=== PATIENT | female | born 2000 | race Two or more races ===

== ENCOUNTER 2022-06-01 20:00 | Emergency (ER) | payer SELFPAY ==
[~2022-06-01] VITALS: Ht 165.1 cm; Wt 75.0 kg
[2022-06-01 20:01] VITALS: BP 125/77
== END 2022-06-01 22:04 | disposition left against medical advice (07) ==
LOC: M ED 20:00
DX: Z53.21 Procedure and treatment not carried out due to patient leaving prior to being seen by health care provider (principal)

== ENCOUNTER 2023-09-16 00:23 | Inpatient (IN) | payer OTHER, SELFPAY ==
[~2023-09-16] VITALS: Ht 165.1 cm; Wt 98.9 kg
[2023-09-16] VITALS (57 sets, daily range): BP systolic 83–148; BP diastolic 47–95
[2023-09-16] MEDS ORDERED: HOME MED LIST COMPLETE! XX SCH (00:40)
[2023-09-16] MEDS ORDERED: LACTATED RINGER'S 1000 ML IV STA (02:49)
[2023-09-16] MEDS ORDERED: OXYTOCIN DRIP 30 UNITS in IV 1 EA IV SCH ×2 (02:50→20:40)
[2023-09-16] MEDS ORDERED: OXYTOCIN INJ 10UNITS/ML 1ML VIAL IM PRN (02:50)
[2023-09-16] MEDS ORDERED: OXYTOCIN DRIP 30 UNITS in IV 1 EA IV PRN ×6 (02:50)
[2023-09-16] MEDS ORDERED: METHYLERGONOVINE MALEATE 0.2MG/ML 1ML VIAL IM PRN (02:50)
[2023-09-16] MEDS ORDERED: CARBOPROST TROMETHAMINE 250 MCG/ML AMP IM PRN (02:50)
[2023-09-16] MEDS ORDERED: OXYTOCIN INJ 10UNITS/ML 1ML VIAL IV PRN (02:50)
[2023-09-16] MEDS ORDERED: LR 1,000 ML IV SCH ×2 (02:50→20:40)
[2023-09-16] MEDS ORDERED: TRANEXAMIC ACID INJection 1,000 MG in NS 100 ML IV PRN (02:50)
[2023-09-16] MEDS ORDERED: LIDOCAINE 1% MDV 20ML VIAL INFIL PRN (02:50)
[2023-09-16] MEDS ORDERED: miSOPROStol 50MCG 1/2 TABLET PO ONE (02:50)
[2023-09-16 03:49] LABS: HEMATOCRIT 38.9 % (36.0-47.0); HEMOGLOBIN 13.5 g/dl (12.0-15.5); MEAN CORPUSCULAR HGB CONC 34.7 g/dl (32.0-36.5); MEAN CORPUSCULAR VOLUME 89.4 fl (80.0-96.0); PLATELET COUNT, AUTOMATED 198 10^3/uL (150-450); RED BLOOD COUNT 4.35 10^6/uL (4.00-5.40); WHITE BLOOD COUNT 18.2 10^3/uL (4.0-10.0)
[2023-09-16 04:04] LABS: CREATININE,RANDOM URINE 21.2 MG/DL
[2023-09-16 04:08] LABS: TOTAL PROTEIN,RANDOM URINE < 6.0 MG/DL (0.0-14.0)
[2023-09-16 04:13] LABS: URIC ACID 2.7 MG/DL (3.1-7.8)
[2023-09-16 04:15] LABS: LDH LACTATE DEHYDROGENASE 164 U/L (120-246)
[2023-09-16 04:16] LABS: ALT/SGPT 15 U/L (7.0-40); AST/SGOT 17 U/L (<34); BILIRUBIN,TOTAL 0.6 MG/DL (0.3-1.2); GLOMERULAR FILTRATION RATE > 60.0 (>60)
[2023-09-16] MEDS: LR 1,000 ML IV SCH ×4 (04:45→18:18)
[2023-09-16] MEDS ORDERED: NALBUPHINE HCL 1MG/0.1ML (100MG/10ML) MDV IV PRN (09:05)
[2023-09-16] MEDS ORDERED: PROMETHAZINE 25MG/ML 1ML VIAL IV ONE (09:05)
[2023-09-16] MEDS ORDERED: diphenhydrAMINE 50MG/ML VIAL IV PRN (10:05)
[2023-09-16] MEDS ORDERED: LR 500 ML IV PRN (10:05)
[2023-09-16] MEDS ORDERED: EPIDURAL/PCA KEYS XX PRN (10:05)
[2023-09-16] MEDS ORDERED: NALOXONE INJ 0.4MG/1ML VIAL IV PRN (10:05)
[2023-09-16] MEDS ORDERED: ePHEDrine SULFATE 25 MG/5 ML(5MG/ML) SYRINGE IVP PRN (10:05)
[2023-09-16] MEDS: FENTANYL/ROPIVACAINE/NACL BAG 100 ML EPIDURAL SCH ×2 (10:39→18:46)
[2023-09-16] MEDS: ONDANSETRON 4MG 2ML VIAL IV PRN (14:22)
[2023-09-16] MEDS ORDERED: ACETAMINOPHEN 500 MG TAB PO ONE (18:55)
[2023-09-17] VITALS (26 sets, daily range): BP systolic 100–137; BP diastolic 57–86
[2023-09-17] MEDS: FENTANYL/ROPIVACAINE/NACL BAG 100 ML EPIDURAL SCH (04:40)
[2023-09-17] MEDS: ONDANSETRON 4MG 2ML VIAL IV PRN (08:08)
[2023-09-17] MEDS: LR 1,000 ML IV SCH (08:08)
[2023-09-17] MEDS ORDERED: OXYTOCIN DRIP 30 UNITS in IV 1 EA IV SCH (10:30)
[2023-09-17] MEDS ORDERED: DOCUSATE SODIUM 100MG CAPSULE PO PRN (10:30)
[2023-09-17] MEDS ORDERED: IBUPROFEN 800 MG TAB PO PRN (10:30)
[2023-09-17] MEDS ORDERED: DIBUCAINE 1% OINTMENT 30GM TOP PRN (10:30)
[2023-09-17] MEDS ORDERED: RHOGAM 300MCG (1500IU) INJ IM SCH (10:30)
[2023-09-17] MEDS ORDERED: METHYLERGONOVINE MALEATE 0.2 MG TAB PO PRN (10:30)
[2023-09-17] MEDS ORDERED: ACETAMINOPHEN TAB 650MG DOSE (2X325MG) PO PRN (10:30)
[2023-09-17] MEDS ORDERED: ACETAMINOPHEN 500 MG TAB PO PRN (10:30)
[2023-09-17] MEDS: IBUPROFEN 600MG TAB PO PRN (19:59)
[2023-09-18 06:00] VITALS: BP 131/76; O2SAT 100
[2023-09-18 06:59] LABS: HEMATOCRIT 31.4 % (36.0-47.0); HEMOGLOBIN 10.8 g/dl (12.0-15.5); MEAN CORPUSCULAR HEMOGLOBIN 31.3 pg (27.0-33.0); MEAN CORPUSCULAR HGB CONC 34.4 g/dl (32.0-36.5); PLATELET COUNT, AUTOMATED 165 10^3/uL (150-450); RED BLOOD COUNT 3.45 10^6/uL (4.00-5.40); WHITE BLOOD COUNT 23.4 10^3/uL (4.0-10.0)
[2023-09-18] MEDS: PRENATAL VITAMINS CHEWABLE TABLET PO SCH (07:37)
[2023-09-18] MEDS: IBUPROFEN 600MG TAB PO PRN (07:37)
[2023-09-18 18:00] VITALS: BP 131/77; O2SAT 100
[2023-09-19 06:00] VITALS: BP 118/70; O2SAT 100
[2023-09-19] MEDS ORDERED: ACET1TAB55 PO (08:49)
[2023-09-19] MEDS ORDERED: PRENCHW PO (08:49)
[2023-09-19] MEDS ORDERED: COLA100C5 PO (08:49)
[2023-09-19] MEDS ORDERED: IBUP-1022 PO (08:49)
[2023-09-19] MEDS ORDERED: MEASLES,MUMPS,RUBELLA VACCINE INJ (MMR-II) SC.IMMUN ONE (09:00)
[2023-09-19] MEDS: PRENATAL VITAMINS CHEWABLE TABLET PO SCH (10:10)
[2023-09-19] MEDS: IBUPROFEN 600MG TAB PO PRN (10:10)
== END 2023-09-19 11:36 | disposition home or self-care (01) | DRG 807 ==
LOC: M LDO 00:23 → M LDI 02:50 → M OBS 09-17 12:50
PROVIDERS: ADMIT Obstetrics & Gynecology; ATTEND Advanced Practice Midwife
PROC: 10907ZC Drainage of Amniotic Fluid, Therapeutic from Products of Conception, Via Natural or Artificial Opening (ICD-10-PCS; 2023-09-16)
PROC: 3E033VJ Introduction of Other Hormone into Peripheral Vein, Percutaneous Approach (ICD-10-PCS; 2023-09-16)
PROC: 10E0XZZ Delivery of Products of Conception, External Approach (ICD-10-PCS; principal; 2023-09-17)
PROC: 0HQ9XZZ Repair Perineum Skin, External Approach (ICD-10-PCS; 2023-09-17)
DX: O13.4 Gestational [pregnancy-induced] hypertension without significant proteinuria, complicating childbirth (principal); Z37.0 Single live birth; Z3A.39 39 weeks gestation of pregnancy; O70.0 First degree perineal laceration during delivery; O77.0 Labor and delivery complicated by meconium in amniotic fluid

== ENCOUNTER 2024-09-05 11:26 | Inpatient (IN) | payer OTHER ==
[~2024-09-05] VITALS: Ht 165.1 cm; Wt 101.3 kg
[~2024-09-05 11:26] MED LIST: ACET1TAB55 PO; COLA100C5 PO; IBUP-1022 PO; PRENCHW PO
[2024-09-05 11:48] VITALS: BP 135/81
[2024-09-05] MEDS ORDERED: ASPI81CH33 PO (11:52)
[2024-09-05] MEDS ORDERED: LIDOCAINE 1% MDV 20ML VIAL INFIL PRN (11:55)
[2024-09-05] MEDS ORDERED: TRANEXAMIC ACID INJection 1,000 MG in NS 100 ML IV PRN (11:55)
[2024-09-05] MEDS ORDERED: HOME MED LIST COMPLETE! XX SCH (11:55)
[2024-09-05] MEDS ORDERED: OXYTOCIN DRIP 30 UNITS in IV 1 EA IV PRN (11:55)
[2024-09-05] MEDS: miSOPROStol 50MCG 1/2 TABLET SL PRN (12:37)
[2024-09-05 12:38] LABS: HEMOGLOBIN 10.9 g/dl (12.0-15.5); MEAN CORPUSCULAR HEMOGLOBIN 24.3 pg (27.0-33.0); MEAN CORPUSCULAR HGB CONC 32.1 g/dl (32.0-36.5); MEAN CORPUSCULAR VOLUME 75.7 fl (80.0-96.0); PLATELET COUNT, AUTOMATED 223 10^3/uL (150-450); RED BLOOD COUNT 4.49 10^6/uL (4.00-5.40); WHITE BLOOD COUNT 9.5 10^3/uL (4.0-10.0)
[2024-09-05 12:39] VITALS: BP 135/68
[2024-09-05 13:00] LABS: LDH LACTATE DEHYDROGENASE 210 U/L (120-246)
[2024-09-05 13:01] LABS: ALT/SGPT 16 U/L (7.0-40); AST/SGOT 22 U/L (<34); BILIRUBIN,TOTAL 0.4 MG/DL (0.3-1.2); CREATININE FOR GFR 0.55 MG/DL (0.55-1.30); GLOMERULAR FILTRATION RATE > 60.0 (>60)
[2024-09-05 13:36] LABS: HEPATITIS C VIRUS ABY INDEX < 0.02 INDEX (<0.8)
[2024-09-05 14:44] VITALS: BP 131/72
[2024-09-05 16:00] VITALS: BP 141/87
[2024-09-05] MEDS: LACTATED RINGER'S 1000 ML IV STA (18:14)
[2024-09-05] MEDS: PROMETHAZINE 25MG/ML 1ML VIAL IV ONE (18:14)
[2024-09-05] MEDS: BUTORPHANOL 2 MG/ML 1ML VIAL IV ONE (18:15)
[2024-09-05 18:17] VITALS: BP 130/75
[2024-09-05] MEDS ORDERED: IBUPROFEN 800 MG TAB PO PRN (19:45)
[2024-09-05] MEDS ORDERED: ONDANSETRON 4MG 2ML VIAL IV PRN (19:45)
[2024-09-05] MEDS ORDERED: DOCUSATE SODIUM 100MG CAPSULE PO PRN (19:45)
[2024-09-05] MEDS ORDERED: ACETAMINOPHEN 325 MG TAB PO PRN (19:45)
[2024-09-05] MEDS ORDERED: ACETAMINOPHEN 500 MG TAB PO PRN (19:45)
[2024-09-05 21:15] VITALS: BP 138/74; O2SAT 98
[2024-09-06 05:54] VITALS: BP 113/63; O2SAT 98
[2024-09-06] MEDS: IBUPROFEN 600MG TAB PO PRN (08:10)
[2024-09-06] MEDS: PRENATAL VITAMINS CHEWABLE TABLET PO SCH (08:26)
[2024-09-06] MEDS: DIBUCAINE 1% OINTMENT 30GM TOP PRN (08:28)
[2024-09-06] MEDS: RHOGAM 300MCG (1500IU) INJ IM SCH (11:51)
[2024-09-06 18:00] VITALS: BP 130/80; O2SAT 97
[2024-09-07 06:01] VITALS: BP 122/73; O2SAT 98
[2024-09-07] MEDS ORDERED: MEASLES,MUMPS,RUBELLA VACCINE INJ (MMR-II) SC.IMMUN ONE (09:00)
== END 2024-09-07 12:18 | disposition home or self-care (01) | DRG 807 ==
LOC: M LDI 11:26 → M OBS 21:05
PROVIDERS: ADMIT Advanced Practice Midwife; ATTEND Advanced Practice Midwife
PROC: 10E0XZZ Delivery of Products of Conception, External Approach (ICD-10-PCS; principal; 2024-09-05)
PROC: 0KQM0ZZ Repair Perineum Muscle, Open Approach (ICD-10-PCS; 2024-09-05)
PROC: 3E0P7GC Introduction of Other Therapeutic Substance into Female Reproductive, Via Natural or Artificial Opening (ICD-10-PCS; 2024-09-05)
PROC: 0HQ9XZZ Repair Perineum Skin, External Approach (ICD-10-PCS; 2024-09-05)
DX: O70.1 Second degree perineal laceration during delivery (principal); Z37.0 Single live birth; O70.0 First degree perineal laceration during delivery; Z3A.39 39 weeks gestation of pregnancy